=== PATIENT | male | born 1935 | race Caucasian/White ===

== ENCOUNTER 2016-09-13 23:27 | Emergency (ER) | payer MEDICARE ==
[2016-09-13 23:40] VITALS: TEMP 98; BMI 27.3
[2016-09-14] MEDS ORDERED: LABETALOL 20 MG/4 ML SYRINGE IV ONE (00:01)
--- NOTE | 2016-09-14 00:17 | EDPRACDOC ---
- General Information Chief Complaint: Earache Stated Complaint: RINGING IN EARS Time Seen by Provider: 09/13/16 23:44 Information Source: Patient Mode Of Arrival: Car Home Medications: Home Medications Aspirin 1 tab PO DAILY 09/13/16 Lisinopril 5 mg PO DAILY 09/13/16 Allergies/Adverse Reactions: Allergies Allergy/AdvReac Type Severity Reaction Status Date / Time No Known Allergies Allergy Verified 09/13/16 23:40 - History of Present Illness Onset: 2200 HPI: PT PRESENTS STATING AROUND 2200 TONIGHT HE BEGAN HEARING "CRICKETS" IN HIS EARS. DENIES ANY PAIN, NAUSEA, VOMITING, CHILLS OR FEVER. PT BP IS ELEVATED UPON ARRIVAL, STATES HE TOOK HIS HTN MED THIS MORNING. Highest Known BP PSYCHODRAMATIST: Unknown Symptoms: Reports: Mild Circumstances: Reports: Spontaneous Onset Relevent History of: Reports: Hypertension Hypertension Treatment: Reports: Taking Medication Recent Use of: Reports: None ED Past Medical History - History Reviewed Yes Nurses notes reviewed and agree except as marked - Patient Medical History Cardiac History: Reports: Hypertension Psychological History: Denies: Depression Surgical History: Reports: Hernia Surgery, Tonsillectomy/Adnoidectomy - Social Medical History Smoking Status: Never smoker EDM Review of Systems - Review of Systems ROS Negative Except as Marked: Yes All systems reviewed and were negative except as marked - Physical Exam Constitutional: Alert Oriented to: Time, Person, Place Last recorded Vital Signs: Last Vital Signs Temp 98 F 09/13/16 23:37 Pulse 69 09/13/16 23:37 Resp 20 09/13/16 23:37 BP 175/89 09/13/16 23:37 Pulse Ox 97 09/13/16 23:37 Oxygen Pulse Oxygen Saturation 97 O2 Device Room Air Oxygen Flow Rate Fraction of Inspired Oxygen ( FIO2) - HEENT Head: Normal ( normocephalic) Eye Exam: Normal (PERRL, EOMI, Sclera white) Oropharynx: Normal (Pharynx:Moist without exudate,Gums-no swelling) Tympanic Membrane: Normal Nose: No Symptoms Reported (septum midline) Neck: Normal (FROM, trachea at midline) - Respiratory/Cardiovascular Respiratory: Normal - CTA (BBS clear to auscultation without adventitious sounds ) Cardiovascular: Normal (RRR without murmur, gallop or rub) - GI Auscultation: Normal (NABS) Palpation: Normal (Soft,No rebound or guarding, non distended) Tenderness: Non tender Renee's Sign: Negative Rectal Exam: Deferred - Musculoskeletal Back: Normal (Non-Tender) Extremities: Normal (Normal tone, Pulses 2+ No cyanosis or edema, FROM) - Integumentary Skin: Normal, Warm, Dry Lymphatics: Normal (no adenopathy) - Neurologic Memory Impaired: Normal Motor Function: Normal (Normal tone, Pulses 2+ No cyanosis or edema, FROM) Cranial Nerve: Normal (CN II-X11 intact sensation, strength 5/5) Cerebellar: Normal Mood Description: Normal Perception: Normal - Differential Diagnosis Hypertensive Urgency - Re-evaluation Re-evaluation 1 Re-evaluation Time: 01:01 (PT STATES HE FEELS MUCH BETTER, "CRICKET" NOISE SOUND IS MUCH BETTER AT THIS TIME. BP LOWER. VSS. ) - Results 09/14/16 00:08 09/14/16 00:08 - EKG EKG #1 EKG Time: 00:20 -: Yes EKG interpreted by me Rate: bpm: 71 [place]: Normal Rhythm: NSR Block: RBBB Hypertrophy: None ST: Normal Decision Time to Discharge: 01:02 - Departure Disposition: Home Condition: Stable Final Diagnosis: Hypertension Qualifiers: Hypertension type: essential hypertension Qualified Code(s): I10 - Essential ( primary) hypertension Instructions: Chronic Hypertension (ED) Education/Counseling Given To: Patient Education/Counseling Given Regarding: Diagnosis, Treatment, Prognosis, Follow Up Referrals: Abner Wnyn MD [Primary Care Provider] - One Week Prescriptions: No Action Aspirin 1 tab PO DAILY Lisinopril 5 mg PO DAILY Additional Instructions: TAKE YOUR BLOOD PRESSURE MEDICATION ONCE IN THE MORNING AND ONCE AT NIGHT. FOLLOW UP WITH PCP SCHEDULED. RETURN TO THE ED FOR WORSENING SYMPTOMS OR CONCERNS.
[2016-09-14 00:19] LABS: AUTOMATED BASOPHIL 0.8 % (0-2); AUTOMATED EOSINOPHIL 3.1 % (0-5); AUTOMATED LYMPH 38.1 % (17-44); AUTOMATED MONOCYTE 11.9 % (3-10); AUTOMATED NEUTROPHIL 46.1 % (45-76)
[2016-09-14 00:31] LABS: BLOOD UREA NITROGEN 22 MG/DL (9-20); CALC CORRECTED 9.2 MG/DL (8.4-10.2); CALCIUM 9.1 MG/DL (8.4-10.2); CALCULATED OSMOLALITY 269 MOs/Kg (270-290); CHLORIDE 103 mEq/L (98-107); CPK TOTAL WITH POSSIBLE MB 56 IU/L (55-170); GLUCOSE 101 mg/dL (70-99); PARTIAL THROMB. TIME 21.9 SEC (22-35); SODIUM LEVEL 138 mEq/L (137-146)
[2016-09-14 00:37] LABS: LEUKOCYTES/URINE NEG (NEGATIVE); NITRITE/URINE NEG (NEGATIVE); RBC/URINE 0-2 (0-2); URINE OCCULT BLOOD 1+ (NEG/TRACE); WBC/URINE 0-2 (0-2)
--- NOTE | 2016-09-14 00:46 | DIRPT ---
CLINICAL DATA: Hypertension and tinnitus tonight. EXAM: CT HEAD WITHOUT CONTRAST TECHNIQUE: Contiguous axial images were obtained from the base of the skull through the vertex without intravenous contrast. COMPARISON: 10/30/2010 FINDINGS: Skull and Sinuses:Negative for acute fracture or destructive process. 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 The lipoma measures nearly 4 cm. No temporal bone to explain tinnitus. Patchy mucosal thickening without signs of acute sinusitis. Visualized orbits: Bilateral cataract resection. Brain: No evidence of acute infarction, hemorrhage, hydrocephalus, or mass lesion/mass effect. 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 There are small biparietal and high right frontal cortical infarcts which have developed since 2010, but have a chronic appearance. Cortical atrophy without notable progression since 2010. Chronic small vessel disease with confluent ischemic gliosis in the deep cerebral white matter. IMPRESSION: 1. No acute finding. 2. Chronic ischemic injury with progression since 2010. Electronically Signed By: Jerry Magana M.D. On: 09/14/2016 00:43
[2016-09-14 01:18] VITALS: BP 163/70; PULSE 64
== END 2016-09-14 01:16 | disposition home or self-care (01) ==
LOC: ED 23:27
DX: I10 Essential (primary) hypertension (principal); H93.19 Tinnitus, unspecified ear
CPT/HCPCS: 36415; 70450; 80053; 81001; 82550; 83880; 84484; 85025; 85610; 85730; 93005; 96374; 99283; J3490